=== PATIENT | male | born 1960 | race American Indian/Alaskan Native ===

== ENCOUNTER 2018-12-23 18:25 | Observation (INO) | payer MEDICAID ==
[2018-12-23 18:30] VITALS: BMI 22.2
[2018-12-23 19:14] LABS: BASO # 0.03 K/mm3 (0.0-2.0); BASO % 0.5 % (0.0-3.0); EOS % 0.6 % (1.5-5.0); HEMOGLOBIN 12.6 g/dL (14.0-18.0); LYMPH % 63.3 % (22.0-35.0); MEAN CELL VOLUME 86.9 fl (80.0-105.0); MEAN CORPUSCULAR HEMOGLOBIN 28.4 pg (25.0-35.0); MEAN CORPUSCULAR HGB CONC 32.6 g/dl (31.0-37.0); MEAN PLATELET VOLUME 10.5 fl (7.0-11.0); MONO # 0.3 (0.1-0.6); MONO % 4.8 % (1.0-6.0); RBC 4.44 10^6/uL (3.5-6.1); RED CELL DISTRIBUTION WIDTH 14.3 % (11.5-14.5); WHITE BLOOD COUNT 6.3 10^3/uL (4.5-11.0)
--- NOTE | 2018-12-23 19:16 | ED PDOC ---
Arrival/HPI - General Chief Complaint: Abnormal Labs Time Seen by Provider: 12/23/18 18:38 Historian: Patient - History of Present Illness Narrative History of Present Illness (Text): 12/23/18 19:16 58 year old male, with past medical history of diabetes, presents to the ED for evaluation of low potassium today. Patient states recent blood work at PMD's office and was made aware 2 days ago of low potassium with subsequent referral to the ED. Patient reports visiting [facility] yesterday but left without being seen because of 4 hour wait. Patient was contacted by his PMD again today, prompting him to present to the ED for evaluation. Patient currently denies any somatic complaints. Patient denies any fevers, chills, headache, dizziness, chest pain, shortness of breath, dyspnea on exertion, cough, abdominal pain, nausea, vomit ing, diarrhea, neck pain, or any other complaints. Time/Duration: Prior to Arrival Symptom Onset: Gradual Symptom Course: Unchanged Activities at Onset: Light Context: Home Past Medical History - Provider Review Nursing Documentation Reviewed: Yes - Infectious Disease Hx of Infectious Diseases: None - Cardiac Hx Hypertension: Yes - Endocrine/Metabolic Hx Diabetes Mellitus Type 2: Yes - Psychiatric Hx Substance Use: No - Anesthesia Hx Anesthesia: No Family/Social History - Physician Review Nursing Documentation Reviewed: Yes Family/Social History: Unknown Family HX Smoking Status: Heavy Smoker > 10 Cigarettes Daily Hx Alcohol Use: Yes Frequency of alcohol use: Socially Hx Substance Use: No Allergies/Home Meds Allergies/Adverse Reactions: Allergies No Known Allergies Allergy (Verified 12/23/18 18:29) Home Medications: Home Meds Medication Instructions Recorded Confirmed Lisinopril [Zestril] 1 tab PO DAILY 12/23/18 12/23/18 amLODIPine [Norvasc] 1 tab PO DAILY 12/23/18 12/23/18 hydroCHLOROthiazide [Hydrodiuril] 1 tab PO DAILY 12/23/18 12/23/18 metFORMIN [glucOPHAGE] 1 tab PO DAILY 12/23/18 12/23/18 Review of Systems - Physician Review All systems were reviewed & negative as marked: Yes - Review of Systems Constitutional: absent: Fevers Respiratory: absent: SOB Cardiovascular: absent: Chest Pain Gastrointestinal: absent: Abdominal Pain, Diarrhea, Nausea, Vomiting Genitourinary Male: absent: Dysuria, Urinary Output Changes Musculoskeletal: Back Pain (lower back pain secondary to fall while rushing for the bus) Skin: absent: Rash Neurological: absent: Headache, Dizziness Psychiatric: absent: Anxiety Physical Exam Vital Signs Reviewed: Yes Vital Signs Temp Pulse Resp BP Pulse Ox 12/23/18 18:33 98.3 F 80 18 166/102 H 98 Temperature: Afebrile Blood Pressure: Hypertensive Pulse: Regular Respiratory Rate: Normal Appearance: Positive for: Well-Appearing, Non-Toxic, Comfortable Pain Distress: None Mental Status: Positive for: Alert and Oriented X 3 - Systems Exam Head: Present: Atraumatic, Normocephalic Pupils: Present: PERRL Extroacular Muscles: Present: EOMI Conjunctiva: Present: Normal Mouth: Present: Moist Mucous Membranes Neck: Present: Normal Range of Motion Respiratory/Chest: Present: Clear to Auscultation, Good Air Exchange. No: Respiratory Distress, Accessory Muscle Use Cardiovascular: Present: Regular Rate and Rhythm, Normal S1, S2. No: Murmurs Abdomen: No: Tenderness, Distention, Peritoneal Signs Back: Present: Normal Inspection Upper Extremity: Present: Normal Inspection. No: Cyanosis, Edema Lower Extremity: Present: Normal Inspection. No: Edema Neurological: Present: GCS=15, CN II-XII Intact, Speech Normal Skin: Present: Warm, Dry, Normal Color. No: Rashes Psychiatric: Present: Alert, Oriented x 3, Normal Insight, Normal Concentration Medical Decision Making ED Course and Treatment: 12/23/18 18:40 Impression: 58 year old male presents to the ED for evaluation of low potassium level. Plan: -- EKG -- Labs -- X-ray of Lumbar Spine -- Reassess and disposition Prior Visits: Notes and results from previous visits were reviewed. Progress Notes: EKG : NSR at 70 bpm, no acute ST changed. XR L spine : no fracture, no abnormality. Labs reviewed, K 3.0. KCl 40 mEq PO x2 ordered, as well as 2 doses of IV KCl. Case d/w medical collector and with Dr. Esteban, request that patient be medicated in the ER and have labs rechecked, if patient's K is still low then will keep for observation. 12/24/18 00:00 On reevaluation, patient remains awake alert and oriented 3 in no acute dist ress. Patient completed 2 PO doses of KCl 40 mEq PO and 2 doses of IV KCl 02/28/19 00:30 Repeat BMP : K 3.1. Case d/w medical collector and with Dr. Esteban, agrees with plan for observation under the hospitalist service. - RAD Interpretation Radiology Orders: 12/23/18 19:10 LS SPINE WITH OBL > 18 YRS OLD [RAD] Stat - PA / DELIVERER FOOD / Resident Statement MD/DO has reviewed & agrees with the documentation as recorded. - Scribe Statement The provider has reviewed the documentation as recorded by the Scribe Rose Ziegler. All medical record entries made by the Scribe were at my direction and personally dictated by me. I have reviewed the chart and agree that the record accurately reflects my personal performance of the history, physical exam, medical decision making, and the department course for this patient. I have also personally directed, reviewed, and agree with the discharge instructions and disposition. Disposition/Present on Arrival - Present on Arrival Any Indicators Present on Arrival: No History of DVT/PE: No History of Uncontrolled Diabetes: No Urinary Catheter: No History of Decub. Ulcer: No History Surgical Site Infection Following: None - Disposition Have Diagnosis and Disposition been Completed?: Yes Diagnosis: Hypokalemia Disposition: HOSPITALIZED Disposition Time: 00:45 Patient Plan: Observation Condition: STABLE Forms: Stellar (Thai)
[2018-12-23 19:18] LABS: ALB/GLOB RATIO 0.9 (1.1-1.8); ALBUMIN 4.3 g/dL (3.0-4.8); ALT/SGPT 112 U/L (7-56); AST/SGOT 119 U/L (17-59); BLOOD UREA NITROGEN 11 mg/dL (7-21); CALCIUM 9.2 mg/dL (8.4-10.5); GFR NON-AFRICAN AMERICAN > 60
[2018-12-23] MEDS ORDERED: Potassium Chloride 20 mEq/15 ml LIQ UD PO STA (19:26)
[2018-12-23] MEDS ORDERED: Potassium Chloride 20 mEq/15 ml LIQ UD PO ONE (20:30)
[2018-12-24 00:40] LABS: BLOOD UREA NITROGEN 9 mg/dL (7-21); CALCIUM 8.3 mg/dL (8.4-10.5); GFR NON-AFRICAN AMERICAN > 60
--- NOTE | 2018-12-24 01:32 | CP.PCM.HP ---
<Ezekiel Banegas - Last Filed: 12/24/18 02:10> History of Present Illness - History of Present Illness History of Present Illness: Ezekiel Banegas, PGY1 Medicine H&P for Dr. Esteban cc: "hypokalemia in PMD office" Patient is a 58 year old male with PMHx of DM and HTN who presented to the ED for evaluation of low potassium from his recent visit to his PMD's office. Medical team evaluated patient. Patient said he had recent bloodwork at his PMD's office about 2 days ago and it showed low potassium. He initially went to [facility] for evaluation however he waited almost 4 hours without being seen and decided to leave. He was contacted by his PMD again, prompting the patient to return to the [place] [facility] He has some mild low back pain. Denies muscle cramps, fevers, chills, nausea, vomiting, diarrhea, shortness of breath, chest pain, abdominal pain, lightheadedness, dizziness, weakness, weight loss, fatigue, night sweats. No sick contacts or recent travel. He is compliant with his medications and takes it regularly. He denies recent alcohol or drug use. He has not taken any recent herbal supplements or medications that he was not prescribed from his PMD. A full 12 point ROS was conducted and unremarkable except as stated above. PMD: Dr. Lomax PMHx: DM, HTN PSHx: denies Meds: HCTZ 25mg PO daily, Norvasc 10mg daily, Lisinopril 10mg daily, Metformin 500mg BID Allergies: NKDA SocialHx: Current smoker of 1/2 PPD for 30 years. Denies alcohol use. Denies drug use. Lives in [place] with girlfriend. FamHx: non-contributory Present on Admission - Present on Admission Any Indicators Present on Admission: No Review of Systems - Review of Systems All systems: reviewed and no additional remarkable complaints except (as per HPI) Past Patient History - Infectious Disease Hx of Infectious Diseases: None - Past Social History Smoking Status: Heavy Smoker > 10 Cigarettes Daily - CARDIAC Hx Hypertension: Yes - ENDOCRINE/METABOLIC Hx Diabetes Mellitus Type 2: Yes - PSYCHIATRIC Hx Substance Use: No - SURGICAL HISTORY Hx Surgeries: No - ANESTHESIA Hx Anesthesia: No Meds Allergies/Adverse Reactions: Allergies Allergy/AdvReac Type Severity Reaction Status Date / Time No Known Allergies Allergy Verified 12/23/18 18:29 Physical Exam - Constitutional Appears: No Acute Distress - Head Exam Head Exam: ATRAUMATIC, NORMAL INSPECTION, NORMOCEPHALIC - Eye Exam Eye Exam: EOMI, Normal appearance, PERRL. absent: Scleral icterus Pupil Exam: NORMAL ACCOMODATION - ENT Exam ENT Exam: Mucous Membranes Moist, Normal Exam - Neck Exam Neck exam: Positive for: Normal Inspection. Negative for: Lymphadenopathy - Respiratory Exam Respiratory Exam: Clear to Auscultation Bilateral. absent: Accessory Muscle Use, Chest Wall Tenderness, Rales, Rhonchi, Wheezes - Cardiovascular Exam Cardiovascular Exam: REGULAR RHYTHM, +S1, +S2. absent: Systolic Murmur - GI/Abdominal Exam GI & Abdominal Exam: Normal Bowel Sounds, Soft. absent: Firm, Guarding, Organomegaly, Rebound, Tenderness - Extremities Exam Extremities exam: Positive for: full ROM, normal capillary refill, normal inspection, pedal pulses present. Negative for: calf tenderness - Back Exam Back exam: NORMAL INSPECTION - Neurological Exam Neurological exam: Alert, CN II-XII Intact, Oriented x3, Reflexes Normal - Psychiatric Exam Psychiatric exam: Normal Affect, Normal Mood - Skin Skin Exam: Dry, Intact, Normal Color, Warm Results - Vital Signs Recent Vital Signs: Last Vital Signs Temp 98.3 F 12/23/18 18:33 Pulse 55 L 12/23/18 22:50 Resp 17 12/23/18 22:50 BP 136/99 H 12/23/18 22:50 Pulse Ox 100 12/23/18 22:50 - Labs Result Diagrams: 12/23/18 18:45 12/24/18 00:10 Labs: Laboratory Results - last 24 hr 12/23/18 12/23/18 12/24/18 18:45 18:45 00:10 WBC 6.3 RBC 4.44 Hgb 12.6 L Hct 38.6 L MCV 86.9 MCH 28.4 MCHC 32.6 RDW 14.3 Plt Count 176 MPV 10.5 Neut % (Auto) 30.8 L Lymph % (Auto) 63.3 H Page % (Auto) 4.8 Eos % (Auto) 0.6 L Baso % (Auto) 0.5 Lymph # (Auto) 4.0 H Page # (Auto) 0.3 Eos # (Auto) 0.0 Baso # (Auto) 0.03 Absolute Neuts (auto) 1.93 Sodium 141 139 Potassium 3.0 L 3.1 L Chloride 96 L 101 Carbon Dioxide 39 H 34 H Anion Gap 9 L 7 L BUN 11 9 Creatinine 0.8 0.6 L Est GFR ( Amer) > 60 > 60 Est GFR (Non-Af Amer) > 60 > 60 Random Glucose 92 105 Calcium 9.2 8.3 L Magnesium 1.9 Total Bilirubin 0.4 AST 119 H ALT 112 H Alkaline Phosphatase 105 Total Protein 9.1 H Albumin 4.3 Globulin 4.8 Albumin/Globulin Ratio 0.9 L Assessment & Plan - Assessment and Plan (Free Text) Assessment: Patient is a 58 year old male with PMHx of DM and HTN who presented to the ED for evaluation of low potassium on bloodwork from his recent visit to his PMD's office. Patient will be admitted for hypokalemia and transaminitis. Plan: Hypokalemia - Likely 2/2 Hydrochlorothiazide Use; r/o hyperaldosteronism in the setting of HTN and hypokalemia - Hold HCTZ home med for now - c/w Potassium repletion as needed - repeat labs in morning - Given in ED: K-dur 40 meq x2 tablets and K-rider; minimal improvement in potassium - Renal Ultrasound - UA - urine potassium - renin and aldosterone level - EKG: NSR at [address] or T wave changes. Transaminitis - Hep panel - f/u lumbar spine XR results for mild low back pain - ibuprofen 400mg PO q6 prn for pain control HTN - resume home meds norvasc 10mg daily and Lisinopril 10mg daily DM - ISS (low) - Accuchecks DVT ppx: scd Diet: HHD Dispo: Monitor patient on the floor. Case was discussed and reviewed with Attending Physician, Dr. Esteban <Zaid Esteban - Last Filed: 12/24/18 06:12> Results - Vital Signs Recent Vital Signs: Last Vital Signs Temp 98.3 F 12/23/18 18:33 Pulse 53 L 12/24/18 03:43 Resp 18 12/24/18 03:43 BP 161/97 H 12/24/18 03:21 Pulse Ox 100 12/24/18 02:52 - Labs Result Diagrams: 12/23/18 18:45 12/24/18 00:10 Labs: Laboratory Results - last 24 hr 12/23/18 12/23/18 12/24/18 18:45 18:45 00:10 WBC 6.3 RBC 4.44 Hgb 12.6 L Hct 38.6 L MCV 86.9 MCH 28.4 MCHC 32.6 RDW 14.3 Plt Count 176 MPV 10.5 Neut % (Auto) 30.8 L Lymph % (Auto) 63.3 H Page % (Auto) 4.8 Eos % (Auto) 0.6 L Baso % (Auto) 0.5 Lymph # (Auto) 4.0 H Page # (Auto) 0.3 Eos # (Auto) 0.0 Baso # (Auto) 0.03 Absolute Neuts (auto) 1.93 Sodium 141 139 Potassium 3.0 L 3.1 L Chloride 96 L 101 Carbon Dioxide 39 H 34 H Anion Gap 9 L 7 L BUN 11 9 Creatinine 0.8 0.6 L Est GFR ( Amer) > 60 > 60 Est GFR (Non-Af Amer) > 60 > 60 Random Glucose 92 105 Calcium 9.2 8.3 L Magnesium 1.9 Total Bilirubin 0.4 AST 119 H ALT 112 H Alkaline Phosphatase 105 Total Protein 9.1 H Albumin 4.3 Globulin 4.8 Albumin/Globulin Ratio 0.9 L Urine Color Urine Appearance Urine pH Ur Specific Fackler Urine Protein Urine Glucose (UA) Urine Ketones Urine Blood Urine Nitrate Urine Bilirubin Urine Urobilinogen Ur Leukocyte Esterase Ur Random Potassium 12/24/18 12/24/18 04:00 04:00 WBC RBC Hgb Hct MCV MCH MCHC RDW Plt Count MPV Neut % (Auto) Lymph % (Auto) Page % (Auto) Eos % (Auto) Baso % (Auto) Lymph # (Auto) Page # (Auto) Eos # (Auto) Baso # (Auto) Absolute Neuts (auto) Sodium Potassium Chloride Carbon Dioxide Anion Gap BUN Creatinine Est GFR ( Amer) Est GFR (Non-Af Amer) Random Glucose Calcium Magnesium Total Bilirubin AST ALT Alkaline Phosphatase Total Protein Albumin Globulin Albumin/Globulin Ratio Urine Color Yellow Urine Appearance Clear Urine pH 8.0 Ur Specific Fackler 1.020 Urine Protein Negative Urine Glucose (UA) Negative Urine Ketones Negative Urine Blood Negative Urine Nitrate Negative Urine Bilirubin Negative Urine Urobilinogen 0.2 Ur Leukocyte Esterase Negative Ur Random Potassium 26.7 Attending/Attestation - Attestation I have personally seen and examined this patient.: Yes I have fully participated in the care of the patient.: Yes I have reviewed all pertinent clinical information: Yes Notes (Text): 12/24/18 06:10 Patient was seen when he was in [id number]. Medical record was reviewed. Agree with history, physical examination, assessment and plan with some inclusions and exceptions. Gives family history of liver cancer and heart disease.
[2018-12-24 04:26] LABS: URINE BILIRUBIN NEGATIVE (NEGATIVE); URINE BLOOD NEGATIVE (NEGATIVE); URINE GLUCOSE (UA) NEGATIVE (NEGATIVE); URINE LEUKOCYTE ESTERASE NEGATIVE Leu/uL (NEGATIVE); URINE PROTEIN NEGATIVE mg/dL (<30 mg/dL); URINE UROBILINOGEN 0.2 E.U./dL (<1 E.U./dL)
[2018-12-24 04:35] LABS: URINE APPEARANCE CLEAR (CLEAR); URINE COLOR YELLOW (YELLOW)
[2018-12-24] MEDS ORDERED: Potassium Chloride 20 mEq ER Tab PO STA (07:16)
[2018-12-24 07:36] LABS: HEMOGLOBIN 12.2 g/dL (14.0-18.0); MEAN CELL VOLUME 86.6 fl (80.0-105.0); MEAN CORPUSCULAR HEMOGLOBIN 28.2 pg (25.0-35.0); MEAN CORPUSCULAR HGB CONC 32.6 g/dl (31.0-37.0); MEAN PLATELET VOLUME 10.7 fl (7.0-11.0); RBC 4.32 10^6/uL (3.5-6.1); RED CELL DISTRIBUTION WIDTH 14.4 % (11.5-14.5); WHITE BLOOD COUNT 5.2 10^3/uL (4.5-11.0)
[2018-12-24] MEDS: Insulin Lispro (humaLOG) LOW Coverage SC SCH ×2 (07:50→11:49)
[2018-12-24 08:03] LABS: ALB/GLOB RATIO 0.8 (1.1-1.8); ALBUMIN 3.9 g/dL (3.0-4.8); ALT/SGPT 102 U/L (7-56); AST/SGOT 109 U/L (17-59); BLOOD UREA NITROGEN 9 mg/dL (7-21); CALCIUM 8.5 mg/dL (8.4-10.5); GFR NON-AFRICAN AMERICAN > 60
--- NOTE | 2018-12-24 09:09 | RAD ---
Date of service: 12/23/2018 PROCEDURE: Radiographs of the Lumbar Spine. HISTORY: pain COMPARISON: No prior. FINDINGS: BONES: Normal alignment. No listhesis. No fracture. Mild curvature convex to the right DISC SPACES: Unremarkable. OTHER FINDINGS: Facet arthropathy at L5-S1 bilaterally IMPRESSION: Minimal degenerative changes
[2018-12-24] MEDS ORDERED: Magnesium Sulfate 2 gm/50 ml 2 GM/50 ML BAG IVPB ONE (09:12)
[2018-12-24 09:21] VITALS: TEMP 98
[2018-12-24 09:23] LABS: BARBITURATES, UR NEGATIVE (NEGATIVE); BENZODIAZEPINES, UR POSITIVE (NEGATIVE); OPIATES, UR POSITIVE (NEGATIVE); PHENCYCLIDINE, UR NEGATIVE (NEGATIVE)
--- NOTE | 2018-12-24 10:47 | CARD ---
APPROVED REPORT Date of service: 12/23/2018 EKG Measurement Heart [id number] <Conclusion> Normal sinus rhythm High Voltage LVH.
[2018-12-24] MEDS: Potassium Chloride 20 mEq ER Tab PO SCH ×2 (11:36→13:36)
--- NOTE | 2018-12-24 11:41 | US ---
Date of service: 12/24/2018 PROCEDURE: Ultrasound of the Kidneys HISTORY: rule out adrenal adenoma COMPARISON: None available. TECHNIQUE: Sonogram of the kidneys. FINDINGS: RIGHT KIDNEY: Measures: 12.2 x 4.5 x 4.2 cm. Normal in size, contour and echogenicity. No stone, solid mass lesion or hydronephrosis visualized. LEFT KIDNEY: Measures: 10.9 x 5.3 x 4.9 cm. Normal in size, contour and echogenicity. No urolithiasis, hydronephrosis or solid mass is grossly evident. A 1.4 x 1.4 x 1.5 cm simple cyst seen at the upper pole left kidney medially. OTHER FINDINGS: None. IMPRESSION: No obstructive uropathy bilaterally. No urolithiasis identified bilaterally either. Simple cyst 1.5 cm greatest dimension upper pole left kidney. Lateral kidneys otherwise are unremarkable appearing. No perirenal mass is seen at the upper pole of either kidney, however, CT is better added imaging of the adrenal glands, or MRI, than ultrasound.
[2018-12-24 11:58] VITALS: BP 143/88; PULSE 55; RESP 16; O2SAT 97
[2018-12-24 13:00] LABS: HEPATITIS B SURFACE AG Negative (NEGATIVE)
[2018-12-24 13:05] LABS: HEPATITIS A IGM NEGATIVE (NEGATIVE); HEPATITIS B CORE AB NEGATIVE (NEGATIVE)
--- NOTE | 2018-12-24 14:42 | CP.PCM.PN ---
<Annette Roberson - Last Filed: 12/24/18 14:40> Subjective - Date & Time of Evaluation Date of Evaluation: 12/24/18 Time of Evaluation: 14:40 - Subjective Subjective: see below Objective - Vital Signs/Intake and Output Vital Signs (last 24 hours): Temp Pulse Resp BP Pulse Ox 98 F 55 L 16 143/88 97 12/24/18 06:00 12/24/18 11:57 12/24/18 11:57 12/24/18 11:57 12/24/18 11:57 Intake and Output: 12/24/18 12/24/18 06:59 18:59 Intake Total 360 Balance 360 - Medications Medications: Current Medications Amlodipine Besylate (Norvasc) 10 mg PO DAILY [facility] Last Admin: 12/24/18 10:37 Dose: 10 mg Insulin Human Lispro (Humalog Low) 0 units SC [facility]; Protocol Last Admin: 12/24/18 11:49 Dose: Not Given Lisinopril (Zestril) 10 mg PO DAILY [facility] Last Admin: 12/24/18 10:37 Dose: 10 mg Lorazepam (Ativan) 1 mg IVP Q6H PRN; Protocol PRN Reason: heroin withdrawal - Labs Labs: 12/24/18 07:00 12/24/18 07:00 Against Medical Advice - AMA Patient Left Against Medical Advice: The patient declines admission to the hospital and wishes to leave the Medical Surgical floor. This action is against my medical advice. This decision was made with informed refusal. The patient was told that admission to the hospital is necessary. Explanation of the reasons why were discussed. The risks of leaving were explained to the patient and include, but are not limited to, worsening of known or currently unknown conditions, permanent disability and from undiagnosed or untreated conditions. The patient has the capacity to make this informed decision and understands my explanation of the current medical problem and risks of leaving. The patient voluntarily accepts these risks and signed an AMA form documenting our conversation. The patient was given the opportunity to ask questions and reconsider. The patient was encouraged to return to the Emergency Department at any time for fu rther care. <Sadia Parsons - Last Filed: 12/24/18 15:02> Objective - Vital Signs/Intake and Output Vital Signs (last 24 hours): Temp Pulse Resp BP Pulse Ox 98 F 55 L 16 143/88 97 12/24/18 06:00 12/24/18 11:57 12/24/18 11:57 12/24/18 11:57 12/24/18 11:57 Intake and Output: 12/24/18 12/24/18 06:59 18:59 Intake Total 360 Balance 360 - Labs Labs: 12/24/18 07:00 12/24/18 07:00 Attending/Attestation - Attestation I have personally seen and examined this patient.: Yes I have fully participated in the care of the patient.: Yes I have reviewed all pertinent clinical information, including history, physical exam and plan: Yes Against Medical Advice - AMA Patient Left Against Medical Advice: The patient declines admission to the hospital and wishes to leave the Emergency Department. This action is against my medical advice. This decision was made wi th informed refusal. The patient was told that admission to the hospital is necessary. Explanation of the reasons why were discussed. The risks of leaving were explained to the patient and include, but are not limited to, worsening of known or currently unknown conditions, permanent disability and from undiagnosed or untreated conditions. The patient has the capacity to make this informed decision and understands my explanation of the current medical problem and risks of leaving. The patient voluntarily accepts these risks and signed an AMA form documenting our conversation. The patient was given the opportunity to ask questions and reconsider. The patient was encouraged to return to the Emergency Department at any time for further care.
--- NOTE | 2018-12-24 14:54 | CP.PCM.DIS ---
<DaZoltanfrancois - Last Filed: 12/24/18 14:47> Provider - Provider Date of Admission: 12/24/18 00:51 Attending physician: Sadia Parsons MD Consults: 12/24/18 10:59 Consult [Physician Consult] Routine Comment: Consulting Provider: Frankie Malagon Consulting Physician: Frankie Malagon Reason for Consult: resistant hypokalemia Time Spent in preparation of Discharge (in minutes): 20 Hospital Course - Lab Results Lab Results: Most Recent Lab Values WBC 5.2 10^3/uL (4.5-11.0) 12/24/18 07:00 RBC 4.32 10^6/uL (3.5-6.1) 12/24/18 07:00 Hgb 12.2 g/dL (14.0-18.0) L 12/24/18 07:00 Hct 37.4 % (42.0-52.0) L 12/24/18 07:00 MCV 86.6 fl (80.0-105.0) 12/24/18 07:00 MCH 28.2 pg (25.0-35.0) 12/24/18 07:00 MCHC 32.6 g/dl (31.0-37.0) 12/24/18 07:00 RDW 14.4 % (11.5-14.5) 12/24/18 07:00 Plt Count 160 10^3/uL (120.0-450.0) 12/24/18 07:00 MPV 10.7 fl (7.0-11.0) 12/24/18 07:00 Neut % (Auto) 30.8 % (50.0-68.0) L 12/23/18 18:45 Lymph % (Auto) 63.3 % (22.0-35.0) H 12/23/18 18:45 Pender % (Auto) 4.8 % (1.0-6.0) 12/23/18 18:45 Eos % (Auto) 0.6 % (1.5-5.0) L 12/23/18 18:45 Baso % (Auto) 0.5 % (0.0-3.0) 12/23/18 18:45 Lymph # (Auto) 4.0 (1.2-3.4) H 12/23/18 18:45 Pender # (Auto) 0.3 (0.1-0.6) 12/23/18 18:45 Eos # (Auto) 0.0 (0.0-0.7) 12/23/18 18:45 Baso # (Auto) 0.03 K/mm3 (0.0-2.0) 12/23/18 18:45 Absolute Neuts (auto) 1.93 (1.4-6.5) 12/23/18 18:45 Sodium 140 mmol/L (132-148) 12/24/18 07:00 Potassium 2.7 mmol/L (3.6-5.0) L* 12/24/18 07:00 Chloride 99 mmol/L (98-107) 12/24/18 07:00 Carbon Dioxide 34 mmol/L (21-33) H 12/24/18 07:00 Anion Gap 9 (10-20) L 12/24/18 07:00 BUN 9 mg/dL (7-21) 12/24/18 07:00 Creatinine 0.7 mg/dl (0.8-1.5) L 12/24/18 07:00 Est GFR ( Amer) > 60 12/24/18 07:00 Est GFR (Non-Af Amer) > 60 12/24/18 07:00 POC Glucose (mg/dL) 94 mg/dL (65-110) 12/24/18 11:38 Random Glucose 93 mg/dL (70-110) 12/24/18 07:00 Calcium 8.5 mg/dL (8.4-10.5) 12/24/18 07:00 Phosphorus 3.2 mg/dL (2.5-4.5) 12/24/18 07:00 Magnesium 1.7 mg/dL (1.7-2.2) 12/24/18 07:00 Total Bilirubin 0.5 mg/dL (0.2-1.3) 12/24/18 07:00 AST 109 U/L (17-59) H 12/24/18 07:00 ALT 102 U/L (7-56) H 12/24/18 07:00 Alkaline Phosphatase 101 U/L (38-126) 12/24/18 07:00 Total Creatine Kinase 189 U/L (35-230) 12/24/18 09:50 Total Protein 8.5 g/dL (5.8-8.3) H 12/24/18 07:00 Albumin 3.9 g/dL (3.0-4.8) 12/24/18 07:00 Globulin 4.6 gm/dL 12/24/18 07:00 Albumin/Globulin Ratio 0.8 (1.1-1.8) L 12/24/18 07:00 Urine Color Yellow (YELLOW) 12/24/18 04:00 Urine Appearance Clear (CLEAR) 12/24/18 04:00 Urine pH 8.0 (4.7-8.0) 12/24/18 04:00 Ur Specific Baxter 1.020 (1.005-1.035) 12/24/18 04:00 Urine Protein Negative mg/dL (<30 mg/dL) 12/24/18 04:00 Urine Glucose (UA) Negative mg/dL (NEGATIVE) 12/24/18 04:00 Urine Ketones Negative mg/dL (NEGATIVE) 12/24/18 04:00 Urine Blood Negative (NEGATIVE) 12/24/18 04:00 Urine Nitrate Negative (NEGATIVE) 12/24/18 04:00 Urine Bilirubin Negative (NEGATIVE) 12/24/18 04:00 Urine Urobilinogen 0.2 E.U./dL (<1 E.U./dL) 12/24/18 04:00 Ur Leukocyte Esterase Negative Delfina/uL (NEGATIVE) 12/24/18 04:00 Ur Random Potassium 26.7 meq/L 12/24/18 04:00 Urine Opiates Screen Positive (NEGATIVE) H 12/24/18 08:25 Urine Methadone Screen Negative (NEGATIVE) 12/24/18 08:25 Ur Barbiturates Screen Negative (NEGATIVE) 12/24/18 08:25 Ur Phencyclidine Scrn Negative (NEGATIVE) 12/24/18 08:25 Ur Amphetamines Screen Negative (NEGATIVE) 12/24/18 08:25 U Benzodiazepines Scrn Positive (NEGATIVE) H 12/24/18 08:25 U Oth Cocaine Metabols Negative (NEGATIVE) 12/24/18 08:25 U Cannabinoids Screen Negative (NEGATIVE) 12/24/18 08:25 Alcohol, Quantitative < 10 mg/dL (0-10) 12/24/18 07:25 Hepatitis A IgM Ab Negative (NEGATIVE) 12/24/18 00:10 Hep Bs Antigen Negative (NEGATIVE) 12/24/18 00:10 Hep B Core IgM Ab Negative (NEGATIVE) 12/24/18 00:10 - Hospital Course Hospital Course: 58 year old male with a past medical history of hypertension, DM II, and heroin abuse who was referred to the ED for hypokalemia noted by his PMD during routine labs. Important to note, the patient had recently started taking HCTZ. The patient denied having any symptoms whatsoever aside from urinating much more frequently since starting his HCTZ. He was found to have a K of 3.0 and 2.7. His Magnesium and K were supplemented and his HCTZ was discontinued. Unfortunately, on the day of his admission the patient left against medical advice and his repeat BMP was unable to be taken secondary to the patient refusing labs in the afternoon. He was advised to not take HCTZ and to follow up with his PMD. - Date & Time of H&P Date of H&P: 12/24/18 Time of H&P: 14:54 Discharge Exam - Head Exam Head Exam: ATRAUMATIC, NORMAL INSPECTION, NORMOCEPHALIC - Eye Exam Eye Exam: EOMI, Normal appearance - ENT Exam ENT Exam: Mucous Membranes Moist - Respiratory Exam Respiratory Exam: absent: Accessory Muscle Use Discharge Plan - Follow Up Plan Condition: STABLE Disposition: AGAINST MEDICAL ADVICE Instructions: Hypokalemia (DC), Hypokalemia (GEN) <Sadia Parsons - Last Filed: 12/24/18 15:04> Provider - Provider Date of Admission: 12/24/18 00:51 Attending physician: Sadia Parsons MD Consults: 12/24/18 10:59 Consult [Physician Consult] Routine Comment: Consulting Provider: Frankie Malagon Consulting Physician: Frankie Malagon Reason for Consult: resistant hypokalemia Hospital Course - Lab Results Lab Results: Most Recent Lab Values WBC 5.2 10^3/uL (4.5-11.0) 12/24/18 07:00 RBC 4.32 10^6/uL (3.5-6.1) 12/24/18 07:00 Hgb 12.2 g/dL (14.0-18.0) L 12/24/18 07:00 Hct 37.4 % (42.0-52.0) L 12/24/18 07:00 MCV 86.6 fl (80.0-105.0) 12/24/18 07:00 MCH 28.2 pg (25.0-35.0) 12/24/18 07:00 MCHC 32.6 g/dl (31.0-37.0) 12/24/18 07:00 RDW 14.4 % (11.5-14.5) 12/24/18 07:00 Plt Count 160 10^3/uL (120.0-450.0) 12/24/18 07:00 MPV 10.7 fl (7.0-11.0) 12/24/18 07:00 Neut % (Auto) 30.8 % (50.0-68.0) L 12/23/18 18:45 Lymph % (Auto) 63.3 % (22.0-35.0) H 12/23/18 18:45 Pender % (Auto) 4.8 % (1.0-6.0) 12/23/18 18:45 Eos % (Auto) 0.6 % (1.5-5.0) L 12/23/18 18:45 Baso % (Auto) 0.5 % (0.0-3.0) 12/23/18 18:45 Lymph # (Auto) 4.0 (1.2-3.4) H 12/23/18 18:45 Pender # (Auto) 0.3 (0.1-0.6) 12/23/18 18:45 Eos # (Auto) 0.0 (0.0-0.7) 12/23/18 18:45 Baso # (Auto) 0.03 K/mm3 (0.0-2.0) 12/23/18 18:45 Absolute Neuts (auto) 1.93 (1.4-6.5) 12/23/18 18:45 Sodium 140 mmol/L (132-148) 12/24/18 07:00 Potassium 2.7 mmol/L (3.6-5.0) L* 12/24/18 07:00 Chloride 99 mmol/L (98-107) 12/24/18 07:00 Carbon Dioxide 34 mmol/L (21-33) H 12/24/18 07:00 Anion Gap 9 (10-20) L 12/24/18 07:00 BUN 9 mg/dL (7-21) 12/24/18 07:00 Creatinine 0.7 mg/dl (0.8-1.5) L 12/24/18 07:00 Est GFR ( Amer) > 60 12/24/18 07:00 Est GFR (Non-Af Amer) > 60 12/24/18 07:00 POC Glucose (mg/dL) 94 mg/dL (65-110) 12/24/18 11:38 Random Glucose 93 mg/dL (70-110) 12/24/18 07:00 Calcium 8.5 mg/dL (8.4-10.5) 12/24/18 07:00 Phosphorus 3.2 mg/dL (2.5-4.5) 12/24/18 07:00 Magnesium 1.7 mg/dL (1.7-2.2) 12/24/18 07:00 Total Bilirubin 0.5 mg/dL (0.2-1.3) 12/24/18 07:00 AST 109 U/L (17-59) H 12/24/18 07:00 ALT 102 U/L (7-56) H 12/24/18 07:00 Alkaline Phosphatase 101 U/L (38-126) 12/24/18 07:00 Total Creatine Kinase 189 U/L (35-230) 12/24/18 09:50 Total Protein 8.5 g/dL (5.8-8.3) H 12/24/18 07:00 Albumin 3.9 g/dL (3.0-4.8) 12/24/18 07:00 Globulin 4.6 gm/dL 12/24/18 07:00 Albumin/Globulin Ratio 0.8 (1.1-1.8) L 12/24/18 07:00 Urine Color Yellow (YELLOW) 12/24/18 04:00 Urine Appearance Clear (CLEAR) 12/24/18 04:00 Urine pH 8.0 (4.7-8.0) 12/24/18 04:00 Ur Specific Baxter 1.020 (1.005-1.035) 12/24/18 04:00 Urine Protein Negative mg/dL (<30 mg/dL) 12/24/18 04:00 Urine Glucose (UA) Negative mg/dL (NEGATIVE) 12/24/18 04:00 Urine Ketones Negative mg/dL (NEGATIVE) 12/24/18 04:00 Urine Blood Negative (NEGATIVE) 12/24/18 04:00 Urine Nitrate Negative (NEGATIVE) 12/24/18 04:00 Urine Bilirubin Negative (NEGATIVE) 12/24/18 04:00 Urine Urobilinogen 0.2 E.U./dL (<1 E.U./dL) 12/24/18 04:00 Ur Leukocyte Esterase Negative Delfina/uL (NEGATIVE) 12/24/18 04:00 Ur Random Potassium 26.7 meq/L 12/24/18 04:00 Urine Opiates Screen Positive (NEGATIVE) H 12/24/18 08:25 Urine Methadone Screen Negative (NEGATIVE) 12/24/18 08:25 Ur Barbiturates Screen Negative (NEGATIVE) 12/24/18 08:25 Ur Phencyclidine Scrn Negative (NEGATIVE) 12/24/18 08:25 Ur Amphetamines Screen Negative (NEGATIVE) 12/24/18 08:25 U Benzodiazepines Scrn Positive (NEGATIVE) H 12/24/18 08:25 U Oth Cocaine Metabols Negative (NEGATIVE) 12/24/18 08:25 U Cannabinoids Screen Negative (NEGATIVE) 12/24/18 08:25 Alcohol, Quantitative < 10 mg/dL (0-10) 12/24/18 07:25 Hepatitis A IgM Ab Negative (NEGATIVE) 12/24/18 00:10 Hep Bs Antigen Negative (NEGATIVE) 12/24/18 00:10 Hep B Core IgM Ab Negative (NEGATIVE) 12/24/18 00:10 Hepatitis C Antibody Reactive (NEGATIVE) 12/24/18 00:10 Attending/Attestation - Attestation I have personally seen and examined this patient.: Yes I have fully participated in the care of the patient.: Yes I have reviewed all pertinent clinical information, including history, physical exam and plan: Yes Notes (Text): 12/24/18 15:02 Patient left against medical advice. Advised to hold HCTZ. Follow up with pmd and community planner. Repeat labs with pmd. Monitor LFTs as outpatient. Will call patient will lab test results when available. Sadia Parsons MD Hospitalist.
[2018-12-24 14:56] LABS: HEPATITIS C ANTIBODY REACTIVE (NEGATIVE)
[2018-12-27 17:18] LABS: ALDO/PRA RATIO 212.5 Ratio (0.9-28.9)
== END 2018-12-24 14:57 | disposition left against medical advice (07) ==
LOC: ED 18:25 → ERH 12-24 00:51 → 5RNO 12-24 02:55
PROVIDERS: ADMIT Internal Medicine; ATTEND Internal Medicine
DX: E87.6 Hypokalemia (principal); I10 Essential (primary) hypertension; E11.9 Type 2 diabetes mellitus without complications; F17.210 Nicotine dependence, cigarettes, uncomplicated; Z79.84 Long term (current) use of oral hypoglycemic drugs
CPT/HCPCS: 36415; 72110; 76770; 80053; 80074; 80320; 80324; 80345; 80346; 80349; 80353; 80358; 80361; 81003; 82088; 82550; 82948; 83735; 83992; 84100; 84133; 84244; 85025; 85027; 93005; 96374; 99284; G0378; J3480; J7030